=== PATIENT | male | born 1995 | race Caucasian/White ===

== ENCOUNTER 2018-01-11 03:54 | Emergency (ER) | payer BC, OTHER ==
[2018-01-11] MEDS ORDERED: LISI-353 PO (04:05)
[2018-01-11] MEDS ORDERED: LEVO-3 PO (04:05)
[2018-01-11] MEDS ORDERED: ROSU10TA13 PO (04:05)
--- NOTE | 2018-01-11 04:08 | ER Report ---
History and Physical Time Seen By MD: 04:07 Hx. of Stated Complaint: patient thinks he is having a reaction between his crestor and some of the herbal meds he just started taking. patient having pain and muscle twitching in his right leg. HPI/ROS CHIEF COMPLAINT: pain in leg, concern about medication interactions HISTORY OF PRESENT ILLNESS: This is a 23 year old male. He started having pain in the muscles of the right leg with some associated twitching of the muscles. Not present in left leg. This started after he had added several herbal supplements to his medication regimen. He is on Crestor, Lisinopril/HCT, and levothyroxine. The pain in the leg started about a week ago. He then had a brief episode of some epigastric area chest pain. This is now gone. His leg pain has expanded to be the whole right leg. He has no back pain. No weakness. His brother has a history of PE/DVT with factor V Leiden. No swelling of the leg and no rashes. Allergies: Coded Allergies: No Known Drug Allergies (Unverified , 01/11/18) Home Meds Reported Medications Cinnamon Bark (CINNAMON) 500 Mg Capsule, 500 MG PO QDAY, CAPSULE 01/11/18 Flaxseed Oil (FLAXSEED OIL) 1,000 Mg Capsule, 1000 MG PO QDAY, CAPSULE 01/11/18 Nicolaus-3 Fatty Acids/Fish Oil (FISH OIL 1,000 MG SOFTGEL) 1 Each Capsule, 1 EACH PO QDAY, CAPSULE 01/11/18 [Cbd Oil] No Conflict Check, 1 CAP PO QDAY 01/11/18 Turmeric Root Extract (Turmeric) 538 Mg Capsule, 1 CAP PO QDAY 01/11/18 Garlic (GARLIC) 1 Each Tablet, 1 EACH PO QDAY 01/11/18 Levothyroxine Sodium (LEVOTHYROXINE SODIUM) 100 Mcg Tablet, 100 MCG PO QAM, TAB 01/11/18 Lisinopril/Hydrochlorothiazide (LISINOPRIL-HCTZ 20-12.5 MG TAB) 1 Each Tablet, 1 EACH PO QDAY 01/11/18 Rosuvastatin Calcium (Rosuvastatin Calcium) 10 Mg Tablet, 1 TAB PO QDAY 01/11/18 Reviewed Nurses Notes: Yes Constitutional Vital Sign - Last 24 Hours 01/11/18 01/11/18 01/11/18/25/18 04:00 04:09 04:15 04:24 Pulse 96 90 94 Resp 16 B/P (MAP) 142/104 136/96 (109) Pulse Ox 97 97 93 O2 Delivery Room Air 01/11/18 01/11/18 01/11/18 01/11/18 04:30 04:39 04:51 05:00 Pulse 93 B/P (MAP) 132/79 (96) 134/74 (94) 114/73 (87) Pulse Ox 92 01/11/18 01/11/18 01/11/18 01/11/18 05:30 05:50 06:00 06:05 Pulse ??? 83 87 B/P (MAP) 117/74 (88) Pulse Ox 92 92 91 01/11/18 01/11/18 01/11/18 01/11/18 06:10 06:25 06:30 06:45 Pulse 82 83 83 73 B/P (MAP) 105/61 (76) Pulse Ox 94 96 94 Physical Exam General Appearance: The patient is alert. No acute distress. Eyes: Pupils are equal, round. No pallor, injection or icterus. ENT: Mucous membranes are moist. Respiratory: Lungs are clear to auscultation. Cardiovascular: Regular rate and rhythm. No murmurs, gallops or rubs. Normal capillary refill. No edema. Gastrointestinal: Abdomen is soft and non tender. Nondistended. Normal active bowel sounds. No costovertebral angle tenderness with percussion. Neurological: Alert and oriented x3. No focal neurologic deficits Skin: Warm and dry. No rashes. Musculoskeletal: diffuse discomfort in right leg. No tenderness in palpation of the cervical, thoracic and lumbar spine. DIFFERENTIAL DIAGNOSIS: After history and physical exam, differential diagnosis was considered for leg pain and abdominal pain. Will check CBC, CMP, ESR, CRP, Troponin, EKG, Chest x-ray and Venous ultrasound of the right leg. Consider possibility of the Crestor or the supplements. Medical Decision Making Data Points Result Diagram: 01/11/18 0435 01/11/18 0435 Laboratory Hematology Test 01/11/18 04:35 Red Blood Count 5.66 M/uL (4.00-5.60) Mean Corpuscular Volume 83.5 fL (80.0-96.0) Mean Corpuscular Hemoglobin 29.5 pg (26.0-33.0) Mean Corpuscular Hemoglobin Concent 35.3 g/dL (32.0-36.0) Red Cell Distribution Width 13.6 % (11.5-14.5) Mean Platelet Volume 7.5 fL (7.2-11.1) Neutrophils (%) (Auto) 54.6 % (39.4-72.5) Lymphocytes (%) (Auto) 33.7 % (17.6-49.6) Monocytes (%) (Auto) 9.1 % (4.1-12.4) Eosinophils (%) (Auto) 1.8 % (0.4-6.7) Basophils (%) (Auto) 0.8 % (0.3-1.4) Nucleated RBC Relative Count (auto) 0.3 /100WBC Neutrophils # (Auto) 3.8 K/uL (2.0-7.4) Lymphocytes # (Auto) 2.3 K/uL (1.3-3.6) Monocytes # (Auto) 0.6 K/uL (0.3-1.0) Eosinophils # (Auto) 0.1 K/uL (0.0-0.5) Basophils # (Auto) 0.1 K/uL (0.0-0.1) Nucleated RBC Absolute Count (auto) 0.02 K/uL Erythrocyte Sedimentation Rate 2 mm/HOUR (0-15) Sodium Level 137 mmol/L (137-145) Potassium Level 3.7 mmol/L (3.5-5.0) Chloride Level 99 mmol/L (98-107) Carbon Dioxide Level 25 mmol/L (22-30) Blood Urea Nitrogen 21 mg/dl (9-21) Creatinine 1.20 mg/dl (0.66-1.25) Glomerular Filtration Rate Calc > 60.0 Random Glucose 104 mg/dl (75-110) Calcium Level 9.5 mg/dl (8.4-10.2) Total Bilirubin 0.9 mg/dl (0.2-1.3) Aspartate Amino Transf (AST/SGOT) 37 U/L (0-35) Alanine Aminotransferase (ALT/SGPT) 100 U/L (0-56) Alkaline Phosphatase 69 U/L (0-126) Troponin I < 0.012 ng/ml C-Reactive Protein 0.6 mg/dl (<1.0) Total Protein 7.3 gm/dl (6.3-8.2) Albumin 4.4 g/dl (3.5-5.0) Chemistry Test 01/11/18 04:35 White Blood Count 7.0 k/uL (4.5-11.0) Red Blood Count 5.66 M/uL (4.00-5.60) Hemoglobin 16.7 g/dL (14.0-18.0) Hematocrit 47.3 % (42.0-52.0) Mean Corpuscular Volume 83.5 fL (80.0-96.0) Mean Corpuscular Hemoglobin 29.5 pg (26.0-33.0) Mean Corpuscular Hemoglobin Concent 35.3 g/dL (32.0-36.0) Red Cell Distribution Width 13.6 % (11.5-14.5) Platelet Count 231 K/uL (150-450) Mean Platelet Volume 7.5 fL (7.2-11.1) Neutrophils (%) (Auto) 54.6 % (39.4-72.5) Lymphocytes (%) (Auto) 33.7 % (17.6-49.6) Monocytes (%) (Auto) 9.1 % (4.1-12.4) Eosinophils (%) (Auto) 1.8 % (0.4-6.7) Basophils (%) (Auto) 0.8 % (0.3-1.4) Nucleated RBC Relative Count (auto) 0.3 /100WBC Neutrophils # (Auto) 3.8 K/uL (2.0-7.4) Lymphocytes # (Auto) 2.3 K/uL (1.3-3.6) Monocytes # (Auto) 0.6 K/uL (0.3-1.0) Eosinophils # (Auto) 0.1 K/uL (0.0-0.5) Basophils # (Auto) 0.1 K/uL (0.0-0.1) Nucleated RBC Absolute Count (auto) 0.02 K/uL Erythrocyte Sedimentation Rate 2 mm/HOUR (0-15) Glomerular Filtration Rate Calc > 60.0 Calcium Level 9.5 mg/dl (8.4-10.2) Total Bilirubin 0.9 mg/dl (0.2-1.3) Aspartate Amino Transf (AST/SGOT) 37 U/L (0-35) Alanine Aminotransferase (ALT/SGPT) 100 U/L (0-56) Alkaline Phosphatase 69 U/L (0-126) Troponin I < 0.012 ng/ml C-Reactive Protein 0.6 mg/dl (<1.0) Total Protein 7.3 gm/dl (6.3-8.2) Albumin 4.4 g/dl (3.5-5.0) EKG/Imaging EKG Interpretation 12 lead EKG: Rhythm: normal sinus rhythm, rate 91 [place]: normal QRS: normal ST segments: normal Imaging CHEST PA AND LATERAL 01/11/2018 4:21 AM. INDICATION: Sudden onset chest pain. COMPARISON: None available. FINDINGS: Lungs are well-expanded. The lungs are clear. No pneumothorax or pleural effusion. Pulmonary vasculature is unremarkable. Heart size is normal. IMPRESSION: No acute cardiopulmonary abnormality. Report Dictated By: Braeden Charles MD at 01/11/2018 5:20 AM EXAMINATION: RIGHT LOWER EXTREMITY DOPPLER VENOUS ULTRASOUND DATE: 01/11/2018 4:21 AM INDICATION: Right leg pain. TECHNIQUE: Grayscale, color and pulsed Doppler ultrasound was performed of the right lower extremity veins to evaluate for deep venous thrombosis. COMPARISON: None. FINDINGS: The right common femoral, superficial femoral, and popliteal veins are compressible with normal flow on color Doppler and preserved venous waveform variation where assessed. There is also normal color Doppler flow in the profunda femoris and greater saphenous veins. The right posterior tibial and peroneal veins have patent color Doppler flow. The contralateral left common femoral vein demonstrates normal flow on color Doppler and respiratory variations on pulsed Doppler. IMPRESSION: No evidence of deep venous thrombosis in the right lower extremity. Report Dictated By: Braeden Charles MD at 01/11/2018 5:40 AM ED Course/Re-evaluation Clinical Indication for ER IV: IV Access ED Course Labs unremarkable as noted. Venous ultrasound and chest x-ray are negative. EKG is normal. Reviewed all these findings with the patient. I did recommend that he follow up with his primary care provider for further testing of causes of the muscle pain in his leg. We talked about possibly stopping the Crestor or stopping herbal supplements to see if that would help get rid of the pain. Further testing can be done as an outpatient. Decision to Disposition Date: January 11, 2018 Decision to Disposition Time: 06:29 Depart Departure Latest Vital Signs Vital Signs Date Time Temp Pulse Resp B/P (MAP) Pulse Ox O2 Delivery O2 Flow Rate FiO2 01/11/18 06:45 73 94 01/11/18 06:30 105/61 (76) 01/11/18 04:00 16 Room Air Impression: Primary Impression: Myalgia and myositis Condition: Improved Disposition: HOME OR SELF-CARE Patient Instructions: Musculoskeletal Pain (ED) Additional Instructions: Follow-up with primary care. Consider stopping the Crestor or the supplements to see if this helps. Further testing can be done by your primary care provider. Please let them know you were here in the ER today. JEN KNIGHT MD January 11, 2018 04:08
[2018-01-11] MEDS ORDERED: TURM538C PO (04:16)
[2018-01-11] MEDS ORDERED: [UNRECOGNIZED DRUG - CODE] PO (04:16)
[2018-01-11] MEDS ORDERED: CINN500C12 PO (04:16)
[2018-01-11] MEDS ORDERED: CBD OIL PO (04:16)
[2018-01-11] MEDS ORDERED: OMEG-23 PO (04:16)
[2018-01-11] MEDS ORDERED: GARL1TAB9 PO (04:16)
--- NOTE | 2018-01-11 04:34 | EKG ---
FACILITY: [facility] - [place], [place] PATIENT NAME: MARIANO MAGUIRE : [id number] MR: [id number] V: [id number] EXAM DATE: ORDERING PHYSICIAN: JEN KNIGHT TECHNOLOGIST: RYAN Hansen Reason : CP Blood Pressure : / mmHG Vent. Rate : 091 BPM Atrial Rate : 091 BPM P-R Int : 146 ms QRS Dur : 090 ms QT Int : 374 ms P-R-T Axes : 031 023 014 degrees QTc Int : 460 ms Normal sinus rhythm Isolated Q III may be normal variant but cannot exclude old inferior infarction (unlikely at this age ). Non-specific T changes. No previous ECGs available Confirmed by GENEVA SALAS ([id number]) on 01/11/2018 6:49:13 AM Referred By: ANTONIA Confirmed By:GENEVA SALAS
[2018-01-11 04:51] LABS: PLATELET COUNT, AUTOMATED 231 K/uL (150-450)
--- NOTE | 2018-01-11 05:26 | RADIOLOGY IMAGING REPORT ---
FACILITY: [facility] - [place] PATIENT NAME: Tiana Nielsen : 1995 MR: [id number] V: [id number] EXAM DATE: ORDERING PHYSICIAN: JEN KNIGHT TECHNOLOGIST: [place] [facility] [place] : 1995 Visit/Account:[id number] Date of Sevice: 01/11/2018 CHEST PA AND LATERAL 01/11/2018 4:21 AM. INDICATION: Sudden onset chest pain. COMPARISON: None available. FINDINGS: Lungs are well-expanded. The lungs are clear. No pneumothorax or pleural effusion. Pulmo nary vasculature is unremarkable. Heart size is normal. IMPRESSION: No acute cardiopulmonary abnormality. Report Dictated By: Braeden Charles MD at 01/11/2018 5:20 AM Report E-Signed By: Braeden Charles MD at 01/11/2018 5:22 AM WSN:[id number]
--- NOTE | 2018-01-11 05:46 | RADIOLOGY IMAGING REPORT ---
FACILITY: [facility] - [place] PATIENT NAME: Tiana Nielsen : 1995 MR: [id number] V: [id number] EXAM DATE: ORDERING PHYSICIAN: JEN KNIGHT TECHNOLOGIST: [place] [facility] [place] T[place] : 1995 Visit/Account:[id number] Date of Sevice: 01/11/2018 EXAMINATION: RIGHT LOWER EXTREMITY DOPPLER VENOUS ULTRASOUND DATE: 01/11/2018 4:21 AM INDICATION: Right leg pain. TECHNIQUE: Grayscale, color and pulsed Doppler ultrasound was performed of the right lower extremity veins to evaluate for deep venous thrombosis. COMPARISON: None. FINDINGS: The right common femoral, superficial femoral, and popliteal veins are compressible with normal flow on color Doppler and preserved venous waveform variation where assessed. There is also normal color D oppler flow in the profunda femoris and greater saphenous veins. The right posterior tibial and peroneal veins have patent color Doppler flow. The contralateral left common femoral vein demonstrates normal flow on color Doppler and respiratory variations on pulsed Doppler. IMPRESSION: No evidence of deep venous thrombosis in the right lower extremity. Report Dictated By: Braeden Charles MD at 01/11/2018 5:40 AM Report E-Signed By: Braeden Charles MD at 01/11/2018 5:42 AM WSN:[id number]
[2018-01-11 06:30] VITALS: BP 105/61
== END 2018-01-11 06:56 | disposition home or self-care (01) ==
LOC: ER 04:12
DX: M60.9 Myositis, unspecified (principal)
CPT/HCPCS: 71046; 82040; 82247; 82310; 82374; 82435; 82565; 82947; 84075; 84132; 84155; 84295; 84450; 84460; 84484; 84520; 85025; 85651; 86140; 93005; 99284